=== PATIENT | female | born 1975 | race Caucasian/White ===

== ENCOUNTER 2022-09-15 12:34 | Emergency (ER) | payer MEDICAID ==
[~2022-09-15] VITALS: Ht 160 cm; Wt 80.0 kg
[2022-09-15 12:36] VITALS: BP 105/62
--- NOTE | 2022-09-15 14:23 | NUR ---
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
== END 2022-09-15 15:03 | disposition home or self-care (01) ==
LOC: ER 12:34
DX: L03.116 Cellulitis of left lower limb (principal); M79.605 Pain in left leg; Z88.8 Allergy status to other drugs, medicaments and biological substances; Z88.2 Allergy status to sulfonamides; Z90.49 Acquired absence of other specified parts of digestive tract; Z90.710 Acquired absence of both cervix and uterus
CPT/HCPCS: 93971; 99284